=== PATIENT | female | born 1995 | race Two or more races ===

== ENCOUNTER 2020-08-01 07:53 | Emergency (ER) | payer OTHER, MEDICAID, SELFPAY ==
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
[2020-08-01 07:57] VITALS: BP 109/70; BP 140/90; PULSE 100; PULSE 90; RESP 18; TEMP 36.5; O2SAT 99; BMI 21.8
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
== END 2020-08-01 11:19 | disposition home or self-care (01) ==
PROVIDERS: Emergency Provider Emergency Medicine
DX: R55 Syncope and collapse (principal); M54.2 Cervicalgia; Z79.899 Other long term (current) drug therapy
CPT/HCPCS: 70450; 72125; 99283; 99284

== ENCOUNTER 2021-07-01 13:44 | Emergency (ER) | payer OTHER, MEDICAID, SELFPAY ==
[2021-07-01 13:57] VITALS: BP 128/89; PULSE 119; RESP 16; TEMP 36.9; O2SAT 98; BMI 21.8
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
== END 2021-07-01 17:48 | disposition home or self-care (01) ==
PROVIDERS: Emergency Provider Emergency Medicine
DX: F43.20 Adjustment disorder, unspecified (principal); Z72.89 Other problems related to lifestyle; Z63.4 Disappearance and death of family member
CPT/HCPCS: 99283

== ENCOUNTER 2021-07-01 19:42 | Emergency (ER) | payer OTHER, MEDICAID, SELFPAY ==
--- NOTE | 2021-07-01 20:14 | ED_ITS ---
HPI - Anxiety General Chief Complaint: Anxiety Stated Complaint: anxiety attack Time Seen by Provider: 07/01/21 19:55 Source: patient and EMS Mode of arrival: EMS Limitations: other ( does not want to respond or answer any questions is currently crying and dry heaving on exam) History of Present Illness HPI narrative: 25-year-old female presenting to the ED a via EMS with complaints of anxiety after her family decided to call the ambulance due to her anxiety. The patient's mother just here in the emergency department earlier today and the patient is having increased anxiety and continues to cry which is understandable due to it the patient just went through. On arrival patient is sitting in the bed crying although no tears are present dry heaving not answering any questions. I was able to get her weight and her height so we can give her p.o. Ativan. I explained to her that we will try to re-evaluate her when she is able to come down a little bit more after the Nico GARCIA complaint: anxiety Onset (ago): hour(s) ( Prior to arrival) Severity: severe Quality: constant and worsening Place: home History of similar episodes: No Provoking factors: recent /illness of family member Relieving factors: nothing Exacerbating factors: thinking about event Associated symptoms: denies other symptoms Related Data Allergies Allergy/AdvReac Type Severity Reaction Status Date / Time tree nut [TREE NUT] Allergy Unknown ITCHY Unverified 03/01/20 19:38 THROAT/RASH Review of Systems Review of Systems: Constitutional : No Fever, No Chills ENT/Mouth : No Ear Pain, No Nasal Congestion, No sore throat Eyes: No Eye Pain, No Swelling, No Redness Cardiovascular : No Chest Pain, No SOB Respiratory : No Cough, No Sputum, No Dyspnea Gastrointestinal : No ingestions, No Nausea, No Vomiting, No Diarrhea, No Hematochezia, No Melena Genitourinary : No Dysuria, No Urinary Frequency, No Hematuria Musculoskeletal : No Myalgias Skin : No Skin Lesions, No rash Neuro : No Weakness, No Numbness, No Paresthesias, No Dizziness, No Headache Psych : + Anxiety, No Depression, No SI, No thoughts of self injury, No HI, No AVH, Heme/Lymph: No Lymphadenopathy Endocrine : No Polyuria, No Polydipsia Yes all other systems are reviewed and are negative [facility] Past Medical History Attestation statement: The following information was validated with the patient. Medical History Seizures, generalized convulsive Social History Social History Advance Directives: No Advance Directives Information Provided: No Physical Exam Vital Signs: Vital Signs: BMI result Body Mass Index 18.3 patient not allowing us to take vitals at this time. Appearance: Alert and oriented although currently dry heaving and crying throughout exam not answering questions was only able to tell me her height and weight. Otherwise no other acute distress. Head: Normal external exam. Normocephalic. Atraumatic. No Dunn signs noted. No raccoon eyes noted Eyes: PERRLA. EOMI. Conjunctiva and sclera normal. Eyelids normal. ENT: Pharynx normal. Uvula midline. Moist mucous membranes. No trismus noted. No drooling noted. No muffled voice noted. Neck: Normal inspection. Neck supple. FROM. No adenopathy. Thyroid Normal. No meningeal signs. No neck mass noted. CVS: Normal heart rate and rhythm. Heart sound normal. No murmurs noted. Pulses normal throughout. Respiratory: No respiratory distress. Painless inspiration. Breath sounds normal. No wheezes/rales/rhonchi noted. Chest nontender. No accessory muscle usage noted or decreased air movement noted. Abdomen: Soft and nontender. Bowel sounds normal in all 4 quadrants. No distention noted. No organomegaly noted. No visible injury noted. Back: Full range of motion noted. Skin: Skin warm and dry. Normal skin color. Normal skin turgor. No rashes/lesions/lacerations noted. Extremities: No lower extremity edema. Extremities exhibit normal range of motion. Extremities nontender. Neuro: Oriented X 3. No motor deficit. No sensory deficit. Reflexes normal. Psych: Appearance grossly normal, well-kept, mental status normal, speech and movement normal, speech clear, patient appears very sad and anxious along with depressed. Is cooperative. Normal thought process. Normal thought content. Normal good insight. Judgment good. Course Course Course Narrative: 25-year-old female sent in by her family due to an anxiety /panic attack after her mother here in the ER earlier today. on exam patient is currently crying not really answering any questions although she denies any SI/HI/ auditory or visual hallucinations or thoughts of self injury and was able to tell me her height and weight. Then I explained to her that we will try to give her some p.o. Ativan and try to give her some time to be able to come down then we could get her vitals, EKG, chest x-ray and labs if they were indicated. Both me and the nurse Ashley were at bedside with the entire interaction. Kathryn the nurse was also near the computer near where we were interviewing the patient. Then we were called from registration in the waiting room reporting that the patient walked out and did not want treatment although her father wanted her to receive treatment. Therefore both myself and Ashley the RN who is charge nurse when out to the waiting room to try to speak to the father and the patient just started screaming in the waiting room that she wanted to go home and not be treated here because she was not being treated correctly. I then told the father that that was not what happened that we offered some medication to help calm herself down and give her some time and then she just walked out and we did note that she even walked out. Therefore father and patient eloped from the waiting room after we offered further e valuation treatment they refused/ declined walked out. MDM - Anxiety Medical Records Attestation: I reviewed the patient's medical records. Discharge Plan Discharge Clinical Impression: Grief reaction, Acute anxiety Patient Disposition: Elopement Interventions: ED Discharge Assessment Last Done: 07/01/21 20:26 Discharge Date/Time: 07/01/21 20:27
[2021-07-01 20:17] VITALS: BP 110/63; PULSE 92; O2SAT 98; BMI 18.3
== END 2021-07-01 20:27 | disposition left against medical advice (07) ==
PROVIDERS: Emergency Provider Internal Medicine
DX: F43.22 Adjustment disorder with anxiety (principal); Z72.89 Other problems related to lifestyle; Z63.4 Disappearance and death of family member
CPT/HCPCS: 99281; 99283

== ENCOUNTER 2022-06-01 08:40 | Emergency (ER) | payer MEDICAID, SELFPAY ==
--- NOTE | ~2022-06-01 | CT_ITS ---
EXAMINATION: CT CHEST, ABDOMEN AND PELVIS WITHOUT IV CONTRAST CLINICAL INFORMATION: Fall, rib fractures. Seizure. fall. back pain. fracture? COMPARISON: No pertinent prior studies are available for comparison. TECHNIQUE: Multidetector volumetric imaging was performed from the thoracic inlet through the pubic symphysis following the uneventful administration of: Oral contrast: No Intravenous contrast: None. Sagittal and coronal reformatted images were obtained on the technologist workstation. This CT examination was performed using dose optimization techniques as appropriate, variously including the following: *Automated exposure control *Adjustment of mA and/or kV according to patient size (this includes techniques or standardized protocols for targeted exams where dose is matched to indication/reason for exam; i.e. extremities or head) *Use of iterative reconstruction technique FINDINGS: CHEST: LUNG: No nodules, mass, or focal consolidation. MEDIASTINUM: The mediastinum in normal. The central vascular structures are unremarkable. No hilar or mediastinal lymphadenopathy. Coronary Artery Calcification: None visualized on this study. PLEURA: No significant effusion. No pleural mass or thickening. CHEST WALL/AXILLA: Unremarkable. High resolution bone reconstructed images through the chest were not provided. ABDOMEN/PELVIS: The lack of intravenous contrast limits evaluation of the solid visceral organs including the liver, spleen, pancreas, and kidneys. LIVER, GALLBLADDER, AND BILIARY TREE: Limited non-contrast evaluation is normal. No gross focal hepatic lesion. Normal liver size and contour. No gross biliary ductal dilation. Gallstones. No gallbladder wall thickening or pericholecystic fluid. No biliary ductal dilatation. PANCREAS: Limited non-contrast evaluation is normal. No malcom-pancreatic fluid. SPLEEN: Limited non-contrast evaluation is normal. ADRENAL GLANDS: Normal; no adrenal mass. KIDNEYS AND URETERS: Limited non-contrast evaluation is normal. No hydronephrosis, hydroureter, or calculi seen. No perinephric stranding. GASTROINTESTINAL TRACT: Small bowel and colon are non-dilated. No bowel wall thickening. No pericolonic inflammatory changes to suggest colitis or diverticulitis. ABDOMINAL WALL: No hernia seen. LYMPH NODES: No pathologically enlarged lymph nodes in the abdomen or pelvis. VASCULAR: Normal caliber abdominal aorta. BLADDER: There is a focus of gas in the urinary bladder. PELVIC VISCERA: Unremarkable. OSSEOUS STRUCTURES: No acute or suspicious osseous abnormalities. CT/CT abdomen pelvis wo IV con IMPRESSION: Limited noncontrast CT scan of the chest, abdomen, and pelvis for the indication of trauma. No evidence of solid visceral organ injury. Small focus of gas in the urinary bladder. Recommend clinical correlation. This could reflect recent instrumentation.
--- NOTE | ~2022-06-01 | CT_ITS ---
EXAMINATION: CT HEAD WITHOUT CONTRAST CT CERVICAL SPINE WITHOUT CONTRAST CLINICAL INFORMATION: Seizure. Fall. COMPARISON: None TECHNIQUE: CT of the head and cervical spine were performed without intravenous contrast. Multiplanar reformats were rendered and reviewed. This CT examination was performed using dose optimization techniques as appropriate, variously including the following: *Automated exposure control *Adjustment of mA and/or kV according to patient size (this includes techniques or standardized protocols for targeted exams where dose is matched to indication/reason for exam; i.e. extremities or head) *Use of iterative reconstruction technique DLP: 1028 mGy-cm. FINDINGS: CT head: There is no intracranial hemorrhage, extra-axial collection, mass effect, or territorial infarction. The ventricles are normal in size without hydrocephalus. The extra cranial structures are unremarkable. The calvarium is intact. The visualized paranasal sinuses and mastoid air cells are clear. CT cervical spine: The cervical vertebral bodies maintain normal heights and alignment. The disc heights are preserved. The facet joints are normally aligned. No fracture is seen. There is no significant osseous narrowing of the spinal canal or neural foramina. The lung apices are clear. The cervical soft tissues are unremarkable. CT/CT cervical spine wo IV con IMPRESSION: CT HEAD: No acute intracranial abnormality. CT CERVICAL SPINE: No cervical spine fracture or traumatic malalignment.
--- NOTE | ~2022-06-01 | CT_ITS ---
EXAMINATION: CT HEAD WITHOUT CONTRAST CT CERVICAL SPINE WITHOUT CONTRAST CLINICAL INFORMATION: Seizure. Fall. COMPARISON: None TECHNIQUE: CT of the head and cervical spine were performed without intravenous contrast. Multiplanar reformats were rendered and reviewed. This CT examination was performed using dose optimization techniques as appropriate, variously including the following: *Automated exposure control *Adjustment of mA and/or kV according to patient size (this includes techniques or standardized protocols for targeted exams where dose is matched to indication/reason for exam; i.e. extremities or head) *Use of iterative reconstruction technique DLP: 1028 mGy-cm. FINDINGS: CT head: There is no intracranial hemorrhage, extra-axial collection, mass effect, or territorial infarction. The ventricles are normal in size without hydrocephalus. The extra cranial structures are unremarkable. The calvarium is intact. The visualized paranasal sinuses and mastoid air cells are clear. CT cervical spine: The cervical vertebral bodies maintain normal heights and alignment. The disc heights are preserved. The facet joints are normally aligned. No fracture is seen. There is no significant osseous narrowing of the spinal canal or neural foramina. The lung apices are clear. The cervical soft tissues are unremarkable. CT/CT head/brain wo IV con IMPRESSION: CT HEAD: No acute intracranial abnormality. CT CERVICAL SPINE: No cervical spine fracture or traumatic malalignment.
[2022-06-01 08:51] VITALS: BP 103/56; BP 114/80; PULSE 82; RESP 18; TEMP 36.6; O2SAT 100; BMI 23.3
[2022-06-01 10:01] LABS: Basophils Percent Auto 0.4 % (0-2); Eosinophils Absolute Auto 0.1 X10*3/uL (0.0-0.4); Eosinophils Percent Auto 1.3 % (0-4); Hematocrit 40.8 % (37.0-47.0); Hemoglobin 13.1 g/dl (12.0-16.0); Imm Gran Abs Auto 0.06 X10*3/uL (0.00-0.03); Imm Gran Pct Auto 0.8 % (0.0-0.4); Lymphocytes Percent Auto 12.8 % (20-40); MANUAL DIFF FLAG NO; Mean Corpuscular HGB Conc 32.1 g/dl (31.0-35.0); Mean Corpuscular Hemoglobin 27.6 pg (27.0-33.0); Mean Corpuscular Volume 85.9 fL (80.0-98.0); Mean Platelet Volume 9.5 fL (9.4-12.3); Monocytes Absolute Auto 0.4 X10*3/uL (0.1-1.2); Monocytes Percent Auto 4.8 % (2-11); Neutrophils Absolute Auto 6.2 x10*3/uL (2.0-8.3); Neutrophils Percent Auto 79.9 % (45-73); Platelet Count 225 X10*3/uL (160-400); Red Blood Count 4.75 X10*6/uL (4.20-5.50); Red Cell Distribution Width 13.3 % (11.0-16.0); White Blood Count 7.8 X10*3/uL (4.8-10.8)
--- NOTE | 2022-06-01 10:09 | ECG_ITS ---
Test Reason : EPIGASTRIC PAIN Blood Pressure : / mmHG Vent. Rate : 063 BPM Atrial Rate : 063 BPM P-R Int : 152 ms QRS Dur : 070 ms QT Int : 378 ms P-R-T Axes : 069 047 050 degrees QTc Int : 386 ms Normal sinus rhythm Normal ECG No previous ECGs available Referred By: Ady Mccarty Electronically Signed By:Jason Curiel
[2022-06-01 10:28] LABS: Alanine Aminotransferase 34 U/L (0-31); Albumin Level 4.3 g/dL (3.5-5.0); Alkaline Phosphatase 58 U/L (39-117); Anion Gap 12 (12-20); Aspartate Amino Transferase 36 U/L (5-31); Bilirubin Total 0.4 mg/dL (0.0-1.0); Blood Urea Nitrogen 10 mg/dL (9-16); Calcium 9.2 mg/dL (8.4-10.2); Carbon Dioxide 25 mmol/L (22-29); Chloride 108 mmol/L (96-108); Estimated Glomerular Filt Rate > 60; Glucose Random 91 mg/dL (60-115); HCG Quantitative < 2 mIU/mL; Lipase 43 U/L (8-78); Potassium 4.7 mmol/L (3.3-5.1); Sodium 140 mmol/L (135-145); Total Protein 7.1 g/dL (6.5-8.0)
--- NOTE | 2022-06-01 10:34 | ED.SEIZURE ---
HPI - Seizure General Chief Complaint: Seizure Stated Complaint: Fall in shower per EMS Time Seen by Provider: 06/01/22 09:29 Source: patient Mode of arrival: ambulatory Limitations: no limitations History of Present Illness HPI Narrative: 26-year-old female with past medical history of seizure and not compliant with seizure medications presents to the ED for seizure episodes in the shower. Patient states she was taking keppra but stopped taking it on her own for years and has not had a primary care provider. Patient states usually stress or sudden waking up can cause seizures. Patient states this morning she was awaken suddenly by her alarm. Patient states she then went to shower and while in the shower she felt some twitching in her extremities and then she was waken up by her friend. Patient states usually before she has seizures she has twitching in her extremities. As per father patient last had seizure in June. Patient's fell back into the wall of the shower. Patient does not know if she hit her head. Related Data Previous Rx's Medication Instructions Recorded levetiracetam 500 mg tablet 500 mg PO Q12H 30 days #60 tabs 06/01/22 (Keppra) naproxen 500 mg tablet 500 mg PO BID PRN pain 7 days #14 06/01/22 tabs Allergies Allergy/AdvReac Type Severity Reaction Status Date / Time tree nut [TREE NUT] Allergy Unknown ITCHY Unverified 03/01/20 19:38 THROAT/RASH Review of Systems Review of Systems: Seizure rest pain. Yes all other systems are reviewed and are negative PMFSH Past Medical History Medical History Seizures, generalized convulsive Social History Social History Smoked in Last 30 Days: No Advance Directives: No Advance Directives Information Provided: No Physical Exam Vital Signs: Vital Signs: Last Vital Signs Temp 98.7 F 06/01/22 15:37 Pulse 68 06/01/22 15:37 Resp 18 06/01/22 15:37 BP 107/57 L 06/01/22 15:37 Pulse Ox 100 06/01/22 15:37 O2 Del Method 06/01/22 15:37 BMI result Body Mass Index 23.3 Const: General: cooperative, healthy appearing, comfortable, no acute distress, well developed, alert and awake Orientation/consciousness: oriented to person, oriented to place, oriented to time and patient oriented x3 HEENT: Head: Yes normal to inspection, Yes No palpable skull fracture present, Yes normocephalic, Yes atraumatic and No abrasion Ears: hearing grossly normal bilaterally, external ears normal, TM's normal bilaterally, TM normal on the right, EAC's normal, mastoids normal and no periauricular adenopathy Eyes: General: appearance normal, both eyes and all related structures Neck: Neck: Yes normal visual inspection, Yes full ROM, Yes no lymphadenopathy, Yes no meningeal signs, Yes trachea midline, Yes supple, No anterior neck swelling and No tender Chest: Chest palpation & inspection: normal inspection of the chest and normal palpation of entire chest wall Resp: Effort & Inspection: normal respiratory effort and able to speak in complete sentences Auscultation: clear to auscultation bilaterally Cardio: Jugular venous distension: no JVD GI: Inspection: Yes normal to inspection and No abdominal wall ecchymosis Palpation (GI): Soft to palpation, not firm, Tenderness to palpation present (GI) in the epigastrum, no guarding and not rigid : General: No CVA tenderness and Yes no CVA tenderness Back/Spine/Pelvis: Back: no CVA tenderness, No CVA tenderness and back tenderness (lumbar) Skin: General skin exam: no rashes or lesions noted and elasticity normal Neuro: Other: Negative for any neuro deficits. Negative pronator drift. There is slurred speech. Negative facial droop. All extremities equal strength 5+. [id number] rapid hand movement intact. negative Romberg. General: oriented to person, oriented to place, oriented to time, patient oriented x3, gait normal, tone normal, moves all extremities, Normal light touch and pain sensation, no meningeal signs, no focal motor deficits and CN's II-XI intact bilaterally Extrem: General: Yes normal to inspection and Yes full ROM Psych: Appearance: grossly normal, well kempt and not disheveled Course Course Course Narrative: Sounds like seizure but will do labs make sure there is no electrolyte deficiency. Will check urine make sure there is no UTI. Check glucose make sure there is no hyperglycemia. Will order Keppra. Due to patient having seizures since June will do imaging of the head.. Limiting the back for spine tenderness Reevaluation(s) Reevaluation #1: Patient labs came back normal negative for any signs of urinary tract infection, electrolyte deficiency, or hypoglycemia. EKG negative STEMI. Troponin negative. negative not suspect ectopic . CT scan images negative for any acute injury. Discussed bladder gas reading with Dr. Obrien who agreed no further evaluation needed. Patient does not have any abdominal pain, suprpabic pain, cellulitic changes or urine infection. Was sent for scan of abdomen and pelvis to evaluate the spine due to patient falling in the shower due to seizure. Time: 16:02 Medications Administered Discontinued Medications Generic Name Dose Route Start Last Admin Trade Name Freq PRN Reason Stop Dose Admin Sodium Chloride 1,000 mls @ 999 mls/hr 06/01/22 10:18 06/01/22 12:13 Ns IVCONT 06/01/22 11:18 Infused .Q1H1M STA Infusion Levetiracetam 1,000 mg in 100 mls @ 400 mls/hr 06/01/22 10:41 06/01/22 11:28 Keppra IV 06/01/22 10:55 Infused ONCE ONE Infusion Medical Decision Making Medical Decision Making MDM Narrative: 26-year-old female with history of seizure noncompliant with Keppra presented for seizure episode. History physical exam does not indicate myocardial infarction, urinary tract infection, electrolute deficiency, hypo glycemia, any traumatic injury. No observation needed. No admission needed Differential Diagnosis Differential Diagnoses: The differential diagnosis associated with the presentation includes (Hypoglycemia, UTI, electrolyte deficiency, myocardial infarction,) Lab Data Result Diagrams: 06/01/22 09:55 06/01/22 09:55 Labs: Lab Results 06/01/22 06/01/22 06/01/22 Range/Units 09:55 09:55 11:08 WBC 7.8 (4.8-10.8) X10*3/uL RBC 4.75 (4.20-5.50) X10*6/uL Hgb 13.1 (12.0-16.0) g/dl Hct 40.8 (37.0-47.0) % MCV 85.9 (80.0-98.0) fL MCH 27.6 (27.0-33.0) pg MCHC 32.1 (31.0-35.0) g/dl RDW 13.3 (11.0-16.0) % Plt Count 225 (160-400) X10*3/uL MPV 9.5 (9.4-12.3) fL Immature Gran % (Auto) 0.8 H (0.0-0.4) % Neut % (Auto) 79.9 H (45-73) % Lymph % (Auto) 12.8 L (20-40) % [place] % (Auto) 4.8 (2-11) % Eos % (Auto) 1.3 (0-4) % Baso % (Auto) 0.4 (0-2) % Lymph # (Auto) 1.0 L (1.2-4.9) X10*3/uL [place] # (Auto) 0.4 (0.1-1.2) X10*3/uL Eos # (Auto) 0.1 (0.0-0.4) X10*3/uL Baso # (Auto) 0.0 (0.0-0.2) X10*3/uL Abs Immat Gran (auto) 0.06 H (0.00-0.03) X10*3/uL Absolute Neuts (auto) 6.2 (2.0-8.3) x10*3/uL Absolute Nucleated RBC 0.000 (0.0-0.012) X10*3/uL Nucleated RBC % (auto) 0.0 (0.0-0.2) /100WBC PT (10.0-13.1) SEC INR (0.9-1.1) APTT (26.0-36.4) SEC Sodium 140 (135-145) mmol/L Potassium 4.7 (3.3-5.1) mmol/L Chloride 108 (96-108) mmol/L Carbon Dioxide 25 (22-29) mmol/L Anion Gap 12 (12-20) BUN 10 (9-16) mg/dL Creatinine 0.70 (0.5-1.4) mg/dL Estim Creat Clear Calc 114.0 Estimated GFR > 60 Random Glucose 91 (60-115) mg/dL Calcium 9.2 (8.4-10.2) mg/dL Magnesium 2.2 (1.6-2.6) mg/dL Total Bilirubin 0.4 (0.0-1.0) mg/dL AST 36 H (5-31) U/L ALT 34 H (0-31) U/L Alkaline Phosphatase 58 (39-117) U/L Troponin I High Sens < 3.5 (<3.5-17.0) ng/L Total Protein 7.1 (6.5-8.0) g/dL Albumin 4.3 (3.5-5.0) g/dL Lipase 43 (8-78) U/L Beta HCG, Quant < 2 mIU/mL Urine Color Urine Appearance Urine pH (5.0-9.0) Ur Specific [place] (1.005-1.025) Urine Protein (Neg-Trace) mg/dL Urine Glucose (UA) (Negative) mg/dL Urine Ketones (Negative) mg/dL Urine Blood (Negative) Urine Nitrite (Negative) Ur Leukocyte Esterase (Negative) Urine RBC (0-2) /HPF Urine WBC (0-5) /HPF Ur Squamous Epith Cells (0-2) /HPF Urine Bacteria (None Seen) Hyaline Casts (0-2) /LPF 06/01/22 06/01/22 Range/Units 11:08 13:12 WBC (4.8-10.8) X10*3/uL RBC (4.20-5.50) X10*6/uL Hgb (12.0-16.0) g/dl Hct (37.0-47.0) % MCV (80.0-98.0) fL MCH (27.0-33.0) pg MCHC (31.0-35.0) g/dl RDW (11.0-16.0) % Plt Count (160-400) X10*3/uL MPV (9.4-12.3) fL Immature Gran % (Auto) (0.0-0.4) % Neut % (Auto) (45-73) % Lymph % (Auto) (20-40) % [place] % (Auto) (2-11) % Eos % (Auto) (0-4) % Baso % (Auto) (0-2) % Lymph # (Auto) (1.2-4.9) X10*3/uL [place] # (Auto) (0.1-1.2) X10*3/uL Eos # (Auto) (0.0-0.4) X10*3/uL Baso # (Auto) (0.0-0.2) X10*3/uL Abs Immat Gran (auto) (0.00-0.03) X10*3/uL Absolute Neuts (auto) (2.0-8.3) x10*3/uL Absolute Nucleated RBC (0.0-0.012) X10*3/uL Nucleated RBC % (auto) (0.0-0.2) /100WBC PT 11.6 (10.0-13.1) SEC INR 1.0 (0.9-1.1) APTT 28.3 (26.0-36.4) SEC Sodium (135-145) mmol/L Potassium (3.3-5.1) mmol/L Chloride (96-108) mmol/L Carbon Dioxide (22-29) mmol/L Anion Gap (12-20) BUN (9-16) mg/dL Creatinine (0.5-1.4) mg/dL Estim Creat Clear Calc Estimated GFR Random Glucose (60-115) mg/dL Calcium (8.4-10.2) mg/dL Magnesium (1.6-2.6) mg/dL Total Bilirubin (0.0-1.0) mg/dL AST (5-31) U/L ALT (0-31) U/L Alkaline Phosphatase (39-117) U/L Troponin I High Sens (<3.5-17.0) ng/L Total Protein (6.5-8.0) g/dL Albumin (3.5-5.0) g/dL Lipase (8-78) U/L Beta HCG, Quant mIU/mL Urine Color Yellow Urine Appearance Clear Urine pH 7.5 (5.0-9.0) Ur Specific [place] 1.020 (1.005-1.025) Urine Protein Negative (Neg-Trace) mg/dL Urine Glucose (UA) Negative (Negative) mg/dL Urine Ketones Trace (Negative) mg/dL Urine Blood Negative (Negative) Urine Nitrite Negative (Negative) Ur Leukocyte Esterase Trace H (Negative) Urine RBC 0-2 (0-2) /HPF Urine WBC 0-5 (0-5) /HPF Ur Squamous Epith Cells 0-2 (0-2) /HPF Urine Bacteria None Seen (None Seen) Hyaline Casts 0-2 (0-2) /LPF Independent Interpretation I performed an independent interpretation of an: EKG Interpretation: Normal sinus rhythm. Normal EKG. Ventricular rate 63. Pr interval 152. QRS 70. QTC 386. Negative STEMI Independent Historian Clinical information obtained from an independent historian. History obtained from or confirmed by: Parent (Father and patient) Prescription Management I considered prescription management with: Other (Keppra) Chronic Conditions Patient?s care impacted by: Other (Seizure) Noncompliant Discharge Plan Discharge Clinical Impression: Generalized seizure, Epileptic seizure Patient Disposition: Home, Self-Care Instructions: Recurrent Seizures in Adults (ED), Back Pain (ED), Epilepsy in Older Adults (ED) Additional Instructions: Please follow-up with primary care provider and neurologist. Recommend being compliant with Keppra prescription that will be sent to the pharmacy. Return to the ED immediately for any chest pain, shortness of breath, another seizure episode, slurred speech, facial droop, paralysis of extremities, pleurisy, leg swelling, calf pain, altered mental status, weakness, dizziness, or any other concerning symptoms. Prescriptions: New levetiracetam [Keppra] 500 mg tablet 500 mg PO Q12H 30 Days Qty: 60 0RF naproxen 500 mg tablet 500 mg PO BID PRN (Reason: pain) 7 Days Qty: 14 0RF Referrals: Sukh Farley MD [Physician] - Stand Alone Forms: Work/School Release Interventions: ED Discharge Assessment Last Done: 06/01/22 16:45 Discharge Date/Time: 06/01/22 16:46 Print Language: Ethiopian
[2022-06-01] MEDS: levETIRAcetam in NaCl (iso-os) 1,000 MG/100 ML PIGGYBACK 400 MG IV (11:12)
[2022-06-01] MEDS: 0.9 % Sodium Chloride 1,000 ML 999 ML IVCONT (11:12)
[2022-06-01 11:23] LABS: Prothrombin Time 11.6 SEC (10.0-13.1)
[2022-06-01 11:25] LABS: Partial Thromboplastin Time 28.3 SEC (26.0-36.4)
[2022-06-01 11:44] LABS: Troponin-I High Sensitivity < 3.5 ng/L (<3.5-17.0)
--- NOTE | 2022-06-01 12:00 | PC.NURSE ---
pt has hx of seizures, she reported that this morning she had a unwitnessed seizure while in her bathroom. she denies hitting her head/loc, she did report confusion after her seizure. pt non-compliant with her seizure meds. she is alert and oriented, denies pain, vss. no complaints
[2022-06-01 13:27] LABS: Appearance Urine Clear; Color Urine Yellow; Glucose Urine UA Negative (Negative); Leukocyte Esterase Urine Trace (Negative); Nitrite Urine Negative (Negative); PH 7.5 (5.0-9.0); UMIC TRIGGER UACC YES; Urine Blood Negative (Negative); Urine Ketones Trace mg/dL (Negative); Urine Protein Negative (Neg-Trace)
[2022-06-01 13:32] LABS: Bacteria Urine None Seen (None Seen); Hyaline Casts Urine 0-2 /LPF (0-2); RBC Urine 0-2 /HPF (0-2); Squamous Epithelial Cell Urine 0-2 /HPF (0-2); WBC Urine 0-5 /HPF (0-5)
[2022-06-01 15:21] LABS: Magnesium 2.2 mg/dL (1.6-2.6)
[2022-06-01 15:37] VITALS: BP 107/57; PULSE 68; RESP 18; TEMP 37.1; O2SAT 100
== END 2022-06-01 16:46 | disposition home or self-care (01) ==
PROVIDERS: Physician Assistant; Emergency Provider Emergency Medicine
DX: R56.9 Unspecified convulsions (principal); R51.9 Headache, unspecified; R10.13 Epigastric pain; M54.2 Cervicalgia; M54.6 Pain in thoracic spine; Z79.899 Other long term (current) drug therapy
CPT/HCPCS: 36415; 70450; 71250; 72125; 74176; 80053; 81001; 83690; 83735; 84484; 84702; 85025; 85610; 85730; 93005; 96361; 96374; 99284; J1953